=== PATIENT | male | born 1995 | race Caucasian/White ===

== ENCOUNTER 2017-03-05 22:55 | Emergency (ER) | payer OTHER ==
[~2017-03-05] VITALS: Ht 185.4 cm; Wt 104.3 kg
[~2017-03-05 22:55] MED LIST: ADDERALL PO; BACITRACIN30 GM TOP; NO MEDICATIONS; PHENERGAN PO; VYNASE
== END 2017-03-06 00:17 | disposition home or self-care (01) ==
LOC: SED 22:55
DX: M79.642 Pain in left hand (principal); F17.200 Nicotine dependence, unspecified, uncomplicated
CPT/HCPCS: 99283